=== PATIENT | male | born 2000 ===

== ENCOUNTER 2021-10-04 03:06 | Observation (INO) ==
[2021-10-04] MEDS ORDERED: ALBUT/IPRATROP 3MG/0.5MG NEB 3 ML VIAL INH STA (03:15)
[2021-10-04 03:52] LABS: Influenza A virus by PCR Negative (Negative); Influenza B virus by PCR Negative (Negative)
[2021-10-04] MEDS ORDERED: ALBUT/IPRATROP 3MG/0.5MG NEB 3 ML VIAL NEB STA (06:18)
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
[2021-10-04 07:28] LABS: Basophils # (auto) 0.04 K/uL (0-0.2); Basophils % (auto) 0.3 %; Eosinophils # (auto) 0.34 K/uL (0-0.5); Eosinophils % (auto) 2.8 %; Hematocrit (blood only) 42.1 % (42-52); Hemoglobin 14.7 g/dL (14.0-18.0); Immature Granulocytes # (auto) 0.03 K/uL (0.00-0.02); Immature Granulocytes % (auto) 0.3 %; Lymphocytes % (auto) 13.4 %; Mean Corpuscular Hemoglobin 31.8 pg (25-34); Mean Corpuscular Hgb Conc 34.9 g/dL (32-36); Mean Corpuscular Volume 91.1 fL (80-100); Monocytes # (auto) 0.79 K/uL (0.11-0.59); Monocytes % (auto) 6.6 %; Neutrophils # (auto) 9.17 K/uL (1.4-6.5); Neutrophils % (auto) 76.6 %; Platelet Count 234 K/uL (130-400); RDW Coefficient of Variation 12.3 % (11.5-14.5); RDW Standard Deviation 40.9 fL (36.4-46.3); Red Blood Count 4.62 M/uL (4.7-6.1); White Blood Count 11.97 K/uL (4.8-10.8)
[2021-10-04 07:44] LABS: Alanine Aminotransferase 25 U/L (12-78); Albumin Level 3.8 gm/dl (3.4-5.0); Aspartate Aminotransferase 23 U/L (15-37); BUN Creatinine Ratio 11.5 (10-20); Blood Urea Nitrogen 12 mg/dl (7-18); Calcium 8.7 mg/dl (8.5-10.1); Carbon Dioxide 27 mmol/L (21-32); Chloride 103 mmol/L (98-107); Creatinine Clr Calc Pharmacy 107.5 ml/min; Est GFR (African American) 122.1 ml/min; Est GFR (Non-African American) 105.3 ml/min; Glucose 108 mg/dl (70-99); Lipase 63 U/L (73-393); Potassium 3.9 mmol/L (3.5-5.1); Sodium 137 mmol/L (136-145)
[2021-10-04 07:49] LABS: Albumin Globulin Ratio 0.9 (0.9-2); Alkaline Phosphatase 77 U/L (45-117); Bilirubin,Total 0.8 mg/dl (0.2-1); Globulin 4.2 gm/dl (2.5-4.0); Troponin I < 0.015 ng/ml (0-0.045)
[2021-10-04] MEDS ORDERED: methylPREDNISolone 125 MG/2 ML VIAL IV STA (08:13)
[2021-10-04 08:16] LABS: D Dimer 190 ug/L FEU (0-500)
--- NOTE | 2021-10-04 09:02 | History & Physical Report ---
Date of Service October 04, 2021 History of Present Illness Primary Care Provider: [facility] Allergies Allergy/AdvReac Type Severity Reaction Status Date / Time pollen extracts AdvReac Hives Unverified 10/04/21 09:00 Home Medications Medication Instructions Recorded Confirmed Type No Known Home Medications 10/04/21 10/04/21 History Past Med/Surg History Social History Smoking Status: Never smoker Preferred Language: Hungarian Feels Safe at Home: Yes Results & Data Results & Data ([facility]) Vital Signs (Past 12 Hours) Vital Signs Temp Pulse Pulse Resp BP BP Pulse Ox 10/04/21 07:13 80 18 157/83 H 93 10/04/21 06:35 77 20 96 10/04/21 05:06 80 20 138/84 88 L 10/04/21 03:52 71 22 97 10/04/21 03:11 37.0 C 96 H 18 135/77 92 Laboratory Results Laboratory Results - last 24 hr 10/04/21 10/04/21 10/04/21 03:18 03:18 03:18 WBC RBC Hgb Hct MCV MCH MCHC RDW Std Deviation RDW Coeff of Dylan Plt Count MPV Immature Gran % (Auto) Neut % (Auto) Lymph % (Auto) [place] % (Auto) Eos % (Auto) Baso % (Auto) Neut # (Auto) Lymph # (Auto) [place] # (Auto) Eos # (Auto) Baso # (Auto) Immature Gran # (Auto) D-Dimer Sodium Potassium Chloride Carbon Dioxide Anion Gap BUN Creatinine Est Cr Clr Drug Dosing Est GFR ( Amer) Est GFR (Non-Af Amer) BUN/Creatinine Ratio Glucose Calcium Total Bilirubin AST ALT Alkaline Phosphatase Troponin I Total Protein Albumin Globulin Albumin/Globulin Ratio Lipase COVID-19 Eval Order Covid19 at [facility] SARS-CoV-2 (PCR) NEGATIVE Influ A Molecular Assay Negative Influ B Molecular Assay Negative 10/04/21 10/04/21 10/04/21 07:14 07:14 07:53 WBC 11.97 H RBC 4.62 L Hgb 14.7 Hct 42.1 MCV 91.1 MCH 31.8 MCHC 34.9 RDW Std Deviation 40.9 RDW Coeff of Dylan 12.3 Plt Count 234 MPV 9.0 Immature Gran % (Auto) 0.3 Neut % (Auto) 76.6 Lymph % (Auto) 13.4 [place] % (Auto) 6.6 Eos % (Auto) 2.8 Baso % (Auto) 0.3 Neut # (Auto) 9.17 H Lymph # (Auto) 1.60 [place] # (Auto) 0.79 H Eos # (Auto) 0.34 Baso # (Auto) 0.04 Immature Gran # (Auto) 0.03 H D-Dimer 190 Sodium 137 Potassium 3.9 Chloride 103 Carbon Dioxide 27 Anion Gap 7.0 BUN 12 Creatinine 1.02 Est Cr Clr Drug Dosing 107.5 Est GFR ( Amer) 122.1 Est GFR (Non-Af Amer) 105.3 BUN/Creatinine Ratio 11.5 Glucose 108 H Calcium 8.7 Total Bilirubin 0.8 AST 23 ALT 25 Alkaline Phosphatase 77 Troponin I < 0.015 Total Protein 8.0 Albumin 3.8 Globulin 4.2 H Albumin/Globulin Ratio 0.9 Lipase 63 L COVID-19 Eval Order SARS-CoV-2 (PCR) Influ A Molecular Assay Influ B Molecular Assay Code Status & VTE Plan VTE Prophylaxis Plan VTE Prophylaxis will be ordered: No PG Care Time/CCT Total # of Minutes Spent Total Time Spent with Patient: Total time spent is greater than 50% in coordination of care (as documented) at patient's floor/unit and/or counseling patient: Coding
[2021-10-04] MEDS ORDERED: ACETAMINOPHEN 325 MG TAB PO PRN (10:17)
[2021-10-04] MEDS ORDERED: ONDANSETRON INJ 2 MG/ML 2 ML VIAL IV PRN (10:17)
[2021-10-04] MEDS ORDERED: ALBUT/IPRATROP 3MG/0.5MG NEB 3 ML VIAL NEB PRN (10:17)
[2021-10-04] MEDS: ALBUT/IPRATROP 3MG/0.5MG NEB 3 ML VIAL NEB SCH ×2 (10:48→14:40)
--- NOTE | 2021-10-04 11:39 | History & Physical Report ---
Date of Service October 04, 2021 Assessment & Plan (1) Asthma: Plan: - Acute asthma exacerbation - acute hypoxia with saturations at 88% - CXR without report read however no consolidations noted on imaging, no findings to suggest pulmonary edema; no evidence of pneumothorax - Since arrival to the floor - saturations are 88%; no SOB at rest but does endorse with ambulation - D-Dimer is negative and can defer CTA at this time - no tachycardia - ZARA Albuterol nebs and Prednisone 40 mg IV Q8H - BP is elevated however given acute hospitalization this may be more stress response and would not overcorrect. Patient is currently not on any home medications Plan: - Monitor for clinical improvement. Do not anticipate long stay - possible D/C later this evening or tomorrow Admission and Anticipated Discharge Date Admission Date: October 04, 2021 History of Present Illness Chief Complaint: Shortness of Breath Primary Care Provider: [facility] Mr. Day is a 21 year old male with a PMHx of Childhood Asthma who presents to the ED c/o fever, SOB, and congestion starting this AM. Pt reports he has had nasal congestion for about 2 weeks and lives in a house with approx. 30 men with one who had URI symptoms. He reports that his nasal congestion was pretty much resolved. However, when he went to work yesterday he noticed the nasal congestion started again but also felt like he had now had more chest congestion. He reports relief with Duoneb down in ED. However, after treatment his pulse ox was noted to be 88%. He does endorse some SOB with exertion however none currently at rest. He is afebrile and currently saturations are 94% on RA. He reports a remote history of childhood asthma but appeared to have grown out of it. Does not require any active treatment for asthma prior to this episode. COVID is negative. D-Dimer is negative. Allergies Allergy/AdvReac Type Severity Reaction Status Date / Time pollen extracts AdvReac Hives Unverified 10/04/21 09:00 Home Medications Medication Instructions Recorded Confirmed Type No Known Home Medications 10/04/21 10/04/21 History Past Med/Surg History Medical History (Updated 10/04/21 @ 12:29 by Jeff Piper DO) Asthma Surgical History (Updated 10/04/21 @ 11:45 by Stephanie Quesada PA-C) No pertinent past surgical history Family History (Updated 10/04/21 @ 11:45 by Stephanie Quesada PA-C) Other No pertinent family history Social History Smoking Status: Current some day smoker Cigarettes Per Day: 1; Second Hand Exposure: Yes; Do You Dip or Chew Tobacco: No; Tobacco Cessation Education Requested by Patient: No Hx Alcohol Use: Yes Alcohol type: beer, wine and hard liquor Hx Substance Use: Yes Last Used Substance: Days (ago) Preferred Language: Portuguese Communication Ability: Effective Shared Services Manager Required: No Beliefs That Will Affect Care: None Current Living Situation: Other Current Living Situation Comment: Student living Other Information That Helps Us Care for You: No Feels Safe at Home: Yes Safety Concerns: Feels Safe At This Time Assistive Devices: None Review of Systems Review of Systems: REVIEW OF SYSTEMS General/Constitutional: Denies fever/chills ENT: Denies visual changes, nasal drainage, sore throat, trouble swallowing Cardiovascular: Denies chest pain, palpitations, edema Respiratory: + cough, +wheezing, +exertion SOB; Denies SOB at rest GI: Denies nausea, vomiting, abdominal pain, constipation, diarrhea : Denies dysuria Musculoskeletal: Denies joint/muscle aches Neurologic: Denies dizziness/lightheadedness Skin: Denies rash Physical Exam Physical Exam: PHYSICAL EXAM General Appearance: WDWN in NAD who is A&O x 3 HEENT: Head is normocephalic/atraumatic; Hearing grossly intact; Mucous membranes moist; Pharynx negative for exudate/lesions Neck: Supple; Trachea midline Heart: RRR with no M/G/R Lungs: Exp wheezing noted in lower lobes bilaterally but good air flow; upper lobes CTA; Respirations unlabored; Neg accessory muscle use Abdomen: Soft, non-tender, non-distended; Positive BS x 4 quadrants Extremities: Neg cyanosis or edema Neurological: Speech clear; Gross motor/sensory function intact; Neg focal neurologic deficits Psychiatric: Appropriate mood/affect Skin: Normal Color; Warm/Dry Results & Data Results & Data ([facility]) Vital Signs (Past 12 Hours) Vital Signs Temp Pulse Pulse Pulse Resp BP BP 10/04/21 10:47 78 18 10/04/21 10:10 36.9 C 68 18 144/74 H 10/04/21 09:56 66 20 150/80 H 10/04/21 07:13 80 18 157/83 H 10/04/21 06:35 77 20 10/04/21 05:06 80 20 138/84 10/04/21 03:52 71 22 10/04/21 03:11 37.0 C 96 H 18 135/77 Pulse Ox Pulse Ox 10/04/21 10:47 94 10/04/21 10:10 94 94 10/04/21 09:56 96 10/04/21 07:13 93 10/04/21 06:35 96 10/04/21 05:06 88 L 10/04/21 03:52 97 10/04/21 03:11 92 Code Status & VTE Plan VTE Prophylaxis Plan VTE Prophylaxis will be ordered: No Supervising Physician Co-Signing Physician Notes Attending note: patient seen and examined with Stephanie ASENCIO. I agree with her assessment and plan, examination, ROS, history. I personally reviewed the chest x-ray which is clear, reviewed labs. on exam, patient is comfortable, no distress at all, breathing non labored, faint expiratory wheezing in posterior lung nails discussed social history, he does smoke cigarettes socially but he admits to vaping, discussed the serious dangers associated with vaping including vaping induced lung injury and bacterial pneumonia he said he would work on quitting - Acute bronchitis, possible asthma exacerbation, due to URI (likely a viral illness, COVID and influenza A/B negative) CXR is completely clear improved dramatically with duoneb and Solu Medrol likely can go home this afternoon with Prednisone 40mg daily x 6 days, give script for albuterol inhaler follow up with [facility] PG Care Time/CCT Total # of Minutes Spent Total Time Spent with Patient: Total time spent is greater than 50% in coordination of care (as documented) at patient's floor/unit and/or counseling patient: Coding Level of Care Code 55891 Initial Inpt Care Lvl 3 Diagnoses Asthma J45.909
--- NOTE | 2021-10-04 12:23 | XRay Report ---
SINGLE VIEW CHEST CLINICAL HISTORY: Cough and fever FINDINGS: An AP, portable, upright chest radiograph is obtained. No prior studies are available for c omparison at the time of dictation. The cardiomediastinal silhouette is unremarkable. The lungs and pleural spaces are clear. No pneumothorax is seen. The bony thorax is grossly intact. IMPRESSION: No active disease in the chest. ACT 112: Negative or not required by law. Electronically signed by: Hal Gutierrez M.D. 10/04/2021 12:21 PM
[2021-10-04] MEDS ORDERED: methylPREDNISolone 40 MG in SYRINGE 0 ML IV SCH (14:00)
--- NOTE | 2021-10-04 16:28 | Discharge Summary ---
Date of Service October 04, 2021 Admission HPI Per Admitting Provider Mr. Day is a 21 year old male with a PMHx of Childhood Asthma who presents to the ED c/o fever, SOB, and congestion starting this AM. Pt reports he has had nasal congestion for about 2 weeks and lives in a house with approx. 30 men with one who had URI symptoms. He reports that his nasal congestion was pretty much resolved. However, when he went to work yesterday he noticed the nasal congestion started again but also felt like he had now had more chest congestion. He reports relief with Duoneb down in ED. However, after treatment his pulse ox was noted to be 88%. He does endorse some SOB with exertion however none currently at rest. He is afebrile and currently saturations are 94% on RA. He reports a remote history of childhood asthma but appeared to have grown out of it. Does not require any active treatment for asthma prior to this episode. COVID is negative. D-Dimer is negative. Principal Diagnosis Bronchitis vs Asthma Exacerbation Discharge Exam PHYSICAL EXAM General Appearance: WDWN in NAD who is A&O x 3 HEENT: Head is normocephalic/atraumatic; Hearing grossly intact; Mucous membranes moist; Pharynx negative for exudate/lesions Neck: Supple; Trachea midline Heart: RRR with no M/G/R Lungs: Exp wheezing noted in lower lobes bilaterally but good air flow; upper lobes CTA; Respirations unlabored; Neg accessory muscle use Abdomen: Soft, non-tender, non-distended; Positive BS x 4 quadrants Extremities: Neg cyanosis or edema Neurological: Speech clear; Gross motor/sensory function intact; Neg focal neurologic deficits Psychiatric: Appropriate mood/affect Skin: Normal Color; Warm/Dry Discharge Data Allergies Allergy/AdvReac Type Severity Reaction Status Date / Time pollen extracts AdvReac Hives Unverified 10/04/21 09:00 Consultations 10/04/21 08:29 ED Decision to Admit Stat Ordered Studies Chest X-Ray 10/04/21 03:14 SINGLE VIEW CHEST CLINICAL HISTORY: Cough and fever FINDINGS: An AP, portable, upright chest radiograph is obtained. No prior studies are available for comparison at the time of dictation. The cardiomediastinal silhouette is unremarkable. The lungs and pleural spaces are clear. No pneumothorax is seen. The bony thorax is grossly intact. IMPRESSION: No active disease in the chest. ACT 112: Negative or not required by law. Electronically signed by: Hal Gutierrez M.D. 10/04/2021 12:21 PM Hospital Course (1) Asthma: - Acute asthma exacerbation vs bronchitis - acute hypoxia with saturations at 88% - CXR - no consolidations noted on imaging, no findings to suggest pulmonary edema; no evidence of pneumothorax - Since arrival to the floor - saturations are 90%+ (H&P stated they were 88% on the floor but was typo, no desaturations on the floor; no SOB at rest but does endorse with ambulation - D-Dimer is negative and can defer CTA at this time - no tachycardia, fever here, or CP - would be low risk and given negative d-dimer - ZARA Albuterol nebs and Prednisone 40 mg IV Q8H while in the hospital -- Converted to Prednisone 40 mg x 6 more days and gave Rx for Albuterol inhaler PRN - He does vape which this was discussed with him that could contribute - Activity restrictions given - rest over the next couple days and gradually increase activity as tolerated - COVID negative - Recommended to patient and mom that pulmonary function testing would be a good idea to further see if underlying asthma remains - BP is elevated however given acute hospitalization/maybe steroids this may be more stress response and would not overcorrect. Patient is currently not on any home medications - Patient has been extremely stable while on floor. Lungs improved throughout day and remain on RA without respiratory issue. Can safely discharge home. Total Time Total Time Spent Total Time Spent (In Minutes): Spent greater than 30 minutes preparing patient for discharge. This includes discussion with patient/family, assessment, intervention, medication reconciliation, and coordination of care. Discharge Plan Discharge Items Patient Disposition: Home - Self-Care Reason For Visit: ASTHMA EXACERBATION Discharge Diagnosis: Asthma Exacerbation Activity: Per Instructions section Lifting: Gradually increase as tolerated Exercise/Sports: Rest today and Gradually increase as tolerated Driving/Machine Use: No limitations Non-emergency contact: Primary Care Provider Call non-emergency contact if: you have any medication questions, your symptoms worsen and you have a fever Follow-up/Referrals: [place] [Primary Care Provider] - Diet: Regular Addtl Attending Provider Instructions: Bronchitis vs Asthma Exacerbation: - You were admitted for bronchitis/asthma exacerbation. You did have some wheezing on examination which could be from bronchitis or asthma given your childhood history of such. - Thankfully your chest xray does not show any signs of pneumonia. Your COVID test was negative. - Recommend to avoid vaping, cigarette smoking, or being around second hand smoke when able as this could cause you to cough/wheeze - You did have one low reading of your pulse oximetry (checks the oxygen level in the capillary blood) however that seemed to have improved with additional christiano athing treatment and steroids. The lowest you went was 88% but since being on the hospital floor it has been mid- which is great - Would recommend that you follow-up with [facility] in a couple days so they can see how you are progressing. Of course, if you feel like you are worsening please get evaluated sooner or come to the ER. - We are going to change you over to oral steroids to take for the next couple days. This is to help reduce the inflammation in the lungs to help prevent the wheezing. Since you had steroids today, you can start these tomorrow on 10/05. -- Take Prednisone 40 mg just once daily for the next six days starting tomorrow - given the short duration of steroids and your quick recovery we do not need to taper these down - We will also send an inhaler to take as needed for shortness of breath. This is called albuterol. You can take 1-2 puffs as needed for shortness of breath or wheezing - Would recommend you take it easy over the next couple days. Can gradually increase your activity as tolerated but it could take a couple days to feel back to your normal. You will likely notice the shortness of breath more with exertion so resting is important. Walking is fine but rest if you feel winded. - This could be a simple viral bronchitis but given the history of asthma this could be an exacerbation of that. It may be worth doing pulmonary function testing with a staff radiation therapist (lung doctor) to see if you do have some underlying findings to suggest asthma. Pending Studies at Discharge: No Stand-Alone Forms: My [employer], Smoking Cessation Medications and DC Order Prescriptions: New albuterol sulfate 90 mcg/actuation HFA aerosol inhaler 2 inh inhalation Q6H PRN (Reason: shortness of breath or wheezing) Qty: 8.5 RF: 0 prednisone 20 mg tablet 40 mg PO DAILY 6 Days Qty: 12 RF: 0 Discharge Orders: Discharge Order (Routine); Ordered 10/04/21 Ordered By: Stephanie Deshpande/Other Patient Handouts: Understanding E-Cigarettes and Vaping Admission Data Admit Date/Time: 10/04/21 09:01 Attending Provider: Jarred Magana Admit Provider: Jarred Magana Primary Care Provider: [facility] Other Providers: Jarred Magana Other Interventions: Discharge Summary Assessment (RN) Last Done: 10/04/21 15:05 Supervising Physician Co-Signing Physician Notes Attending note: patient seen and examined with Stephanie Quesada PA-C. I agree with her discharge summary. I personally reviewed the labs and imaging findings. patient doing well since admission, no hypoxia, no wheezing - Asthma exacerbation: likely from URI, COVID negative, flu negative responded well to steroids and nebulizers discharge on Prednisone 40mg daily and albuterol q6 PRN, provided him with new scripts - Nicotine abuse, vaping: discussed the dangers of vaping with patients told him that he could suffer vaping induced lung injury or bacterial pneumonia from inhaling water vapor discussed that smoking cigarettes can kill you years from now but vaping can potentially kill you when young he promised that he would try to stop Coding Level of Care Code OBSERV/HOSP SAME DATE LVL 2 Diagnoses Asthma J45.909 Asthma complication type: unspecified Asthma persistence: unspecified Asthma severity: mild
--- NOTE | 2021-10-05 07:14 | Electrocardiogram Report ---
Test Reason : Blood Pressure : / mmHG Vent. Rate : 080 BPM Atrial Rate : 080 BPM P-R Int : 146 ms QRS Dur : 084 ms QT Int : 382 ms P-R-T Axes : 067 081 051 degrees QTc Int : 440 ms Normal sinus rhythm with sinus arrhythmia Normal ECG No previous ECGs available Confirmed by Joseph Velasquez ([id number]) on 10/05/2021 7:14:12 AM Referred By: REFERRED SELF Confirmed By:Joseph Velasquez
== END 2021-10-04 15:34 | disposition home or self-care (01) | DRG 202 ==
LOC: ED 03:06 → 3N 09:01 → INTOOBSV 09:01 → 3N 09:56